=== PATIENT | female | born 1930 | race Caucasian/White ===

== ENCOUNTER → 2016-10-28 | Outpatient (CLI) | payer MEDICARE ==
[~2016-10-28] MED LIST: ACET1TAB PO; ALEN70TA47 PO; AMLO1CAP8 PO; ASPI-504 PO; ATOR10TA56 PO; ATOR20TA54 PO; BISA-65 PO; CYAN1TAB26 PO; HYDR-3754 PO; LEVE500T PO; LVT.025T PO; NF-SOLIF5T PO; OMEP10CA4 PO; OMEP20TA PO; OMG1KC PO; PREG50CA2 PO; PROP60CA PO; PROP80CA4 PO; SULF-14ED PO; SULF-221 PO; smz/tmp
[2016-10-28 10:01] LABS: MEAN CORPUSCULAR HGB CONC 34.7 g/dL (31.0-37.0); MEAN CORPUSCULAR VOLUME 92 FL (80-100); PLATELET COUNT 129 10^3uL (150-450); WHITE BLOOD COUNT 4.59 10^3uL (4.0-11.0)
[2016-10-28 10:02] LABS: MEAN CORPUSCULAR HEMOGLOBIN 31.9 PG (26.0-34.0)
[2016-10-28 10:11] LABS: ALBUMIN 4.1 g/dL (3.4-5.0); ANION GAP 13.5 MEQ/L (3-15); CALCULATED IONIZED CALCIUM 3.9 mg/dL (3.8-4.6); MAGNESIUM* 1.9 mg/dL (1.6-2.3); PHOSPHORUS 4.4 mg/dL (2.4-4.9)
[2016-10-28 10:14] LABS: BAND NEUTROPHILS % 0 % (0-6); EOSINOPHILS % 0 % (0-4); LYMPHOCYTES # 1.7 #; MONOCYTES # 0.4 #; MONOCYTES % 11 % (3-11); RBC MORPH NORMAL (NORMAL); SEGMENTED NEUTROPHILS % 51 % (51-67); TOTAL CELLS COUNTED 100
== END ==
LOC: LAB 09:48
PROVIDERS: ATTEND Internal Medicine Hematology & Oncology
DX: C71.1 Malignant neoplasm of frontal lobe (principal)
CPT/HCPCS: 36415; 80053; 83615; 83735; 84100; 85007; 85027

== ENCOUNTER → 2016-11-18 | Outpatient (CLI) | payer MEDICARE | LOC: RAD 18:25 | PROVIDERS: ATTEND Internal Medicine Hematology & Oncology | DX: C71.1 Malignant neoplasm of frontal lobe (principal) | CPT/HCPCS: 70553; A9579 ==

== ENCOUNTER → 2016-12-16 | Outpatient (CLI) | payer MEDICARE ==
[2016-12-16 14:40] LABS: MEAN CORPUSCULAR VOLUME 92 FL (80-100); MEAN PLATELET VOLUME 10.3 FL (6.0-9.5); PLATELET COUNT 47 10^3uL (150-450); WHITE BLOOD COUNT 3.39 10^3uL (4.0-11.0)
[2016-12-16 14:49] LABS: MEAN CORPUSCULAR HEMOGLOBIN 32.7 PG (26.0-34.0); MEAN CORPUSCULAR HGB CONC 35.6 g/dL (31.0-37.0)
[2016-12-16 15:02] LABS: BAND NEUTROPHILS % 0 % (0-6); LYMPHOCYTES # 0.6 #; MONOCYTES # 0.2 #; MONOCYTES % 6 % (3-11); SEGMENTED NEUTROPHILS % 74 % (51-67)
[2016-12-16 15:03] LABS: EOSINOPHILS % 2 % (0-4); RBC MORPH NORMAL (NORMAL); TOTAL CELLS COUNTED 100
[2016-12-16 15:14] LABS: ANION GAP 12.4 MEQ/L (3-15); CALCULATED IONIZED CALCIUM 4.1 mg/dL (3.8-4.6); MAGNESIUM* 1.8 mg/dL (1.6-2.3); PHOSPHORUS 3.9 mg/dL (2.4-4.9); TOTAL PROTEIN 5.5 g/dL (6.4-8.5)
== END ==
LOC: LAB 14:25
PROVIDERS: ATTEND Internal Medicine Hematology & Oncology
DX: C71.1 Malignant neoplasm of frontal lobe (principal)
CPT/HCPCS: 36415; 80053; 83615; 83735; 84100; 85007; 85027

== ENCOUNTER → 2016-12-17 | Outpatient (CLI) | payer MEDICARE | LOC: RAD 10:24 | PROVIDERS: ATTEND Internal Medicine Hematology & Oncology | DX: M25.561 Pain in right knee (principal) | CPT/HCPCS: 73560 ==

== ENCOUNTER → 2016-12-25 | Outpatient (CLI) | payer MEDICARE | LOC: RAD 13:13 | PROVIDERS: ATTEND Internal Medicine Hematology & Oncology | DX: M79.89 Other specified soft tissue disorders (principal); C71.1 Malignant neoplasm of frontal lobe; I82.492 Acute embolism and thrombosis of other specified deep vein of left lower extremity | CPT/HCPCS: 93970 ==

== ENCOUNTER → 2017-01-13 | Outpatient (CLI) | payer MEDICARE ==
[2017-01-13 09:13] LABS: MEAN CORPUSCULAR HEMOGLOBIN 31.1 PG (26.0-34.0); MEAN CORPUSCULAR HGB CONC 32.7 g/dL (31.0-37.0); MEAN CORPUSCULAR VOLUME 95 FL (80-100); MEAN PLATELET VOLUME 9.2 FL (6.0-9.5); PLATELET COUNT 269 10^3uL (150-450); WHITE BLOOD COUNT 8.97 10^3uL (4.0-11.0)
[2017-01-13 09:16] LABS: BAND NEUTROPHILS % 0 % (0-6); EOSINOPHILS % 1 % (0-4); LYMPHOCYTES # 5.1 #; MONOCYTES # 0.2 #; MONOCYTES % 2 % (3-11); RBC MORPH NORMAL (NORMAL); SEGMENTED NEUTROPHILS % 39 % (51-67); TOTAL CELLS COUNTED 100
[2017-01-13 09:31] LABS: ALBUMIN 3.6 g/dL (3.4-5.0); ANION GAP 15.9 MEQ/L (3-15); CALCULATED IONIZED CALCIUM 3.8 mg/dL (3.8-4.6); MAGNESIUM* 1.7 mg/dL (1.6-2.3); TOTAL PROTEIN 7.2 g/dL (6.4-8.5)
== END ==
LOC: LAB 08:55
PROVIDERS: ATTEND Internal Medicine Hematology & Oncology
DX: C71.1 Malignant neoplasm of frontal lobe (principal)
CPT/HCPCS: 36415; 80053; 82570; 83615; 83735; 84100; 84156; 85007; 85027

== ENCOUNTER → 2017-02-10 | Outpatient (CLI) | payer MEDICARE ==
[2017-02-10 09:49] LABS: MEAN CORPUSCULAR HEMOGLOBIN 30.2 PG (26.0-34.0); MEAN CORPUSCULAR HGB CONC 33.1 g/dL (31.0-37.0); MEAN CORPUSCULAR VOLUME 91 FL (80-100); MEAN PLATELET VOLUME 9.3 FL (6.0-9.5); PLATELET COUNT 174 10^3uL (150-450)
[2017-02-10 09:57] LABS: BAND NEUTROPHILS % 0 % (0-6); EOSINOPHILS % 2 % (0-4); LYMPHOCYTES # 5.3 #; MAGNESIUM* 1.5 mg/dL (1.6-2.3); MONOCYTES # 0.2 #; MONOCYTES % 3 % (3-11); RBC MORPH NORMAL (NORMAL); SEGMENTED NEUTROPHILS % 34 % (51-67); TOTAL CELLS COUNTED 100; TOTAL PROTEIN 7.4 g/dL (6.4-8.5)
== END ==
LOC: LAB 09:31
PROVIDERS: ATTEND Internal Medicine Hematology & Oncology
DX: C71.1 Malignant neoplasm of frontal lobe (principal)
CPT/HCPCS: 36415; 80053; 82570; 83615; 83735; 84100; 84156; 85007; 85027

== ENCOUNTER → 2017-02-13 | Outpatient (CLI) | payer MEDICARE ==
--- NOTE | 2017-02-13 09:19 | Diagnostic Imaging Report ---
PROCEDURE: MR imaging of the brain with and without contrast. TECHNIQUE: Multiplanar, multisequence MR imaging of the brain was performed with and without contrast. INDICATION: Brain tumor. COMPARISON: Multiple MRI brain without and with IV contrast 08/02/2016 through 11/18/2016. FINDINGS: Since the most recent prior exam, the peripheral enhancing mass in the anterior right frontal lobe is smaller measuring approximately 2.9 x 3.2 x 3.6 cm, previously 3.7 x 3.9 x 4.8 cm. There is less avid enhancement about the periphery of this mass. There is also decreased surrounding T2 hyperintensities. These continue to cross the corpus callosum but no longer reach the precentral gyrus of the right frontal lobe. The extensive of involvement of the right insula has decreased. There is only minimal residual T2 hyperintensities in the right amygdala. The mass effect upon the right lateral ventricle has also decreased. The previously seen ring-enhancing mass in the more superior right parasagittal frontal lobe demonstrates decreased enhancement with only a thin incomplete rim of enhancement persisting. Stable postoperative findings right frontal craniotomy. No new remote abnormal signal or enhancement. Persistent mucosal thickening in the maxillary sinuses with increasing mucosal thickening in the right frontal sinus. No air-fluid levels. There remains no hydrocephalus or extra-axial fluid collections. Normal intracranial flow voids. The orbits are unremarkable. Normal bone marrow signal. IMPRESSION: Interval response to therapy with decreasing size and less avid enhancement of the mass centered in the right frontal lobe. Additionally, the surrounding T2 hyperintensities have decreased in their extent, described above. Dictated by: Dictated on workstation # [id number]
== END ==
LOC: RAD 06:45
PROVIDERS: ATTEND Internal Medicine Hematology & Oncology
DX: C71.1 Malignant neoplasm of frontal lobe (principal)
CPT/HCPCS: 70553; A9579

== ENCOUNTER → 2017-03-05 | Outpatient (CLI) | payer MEDICARE ==
[~2017-03-05] MED LIST changes: +LORA10CA PO; +POTA10TA10 PO; +RIVA20TA PO
== END ==
LOC: EMS 20:00
DX: Z53.20 Procedure and treatment not carried out because of patient's decision for unspecified reasons (principal)

== ENCOUNTER 2017-03-06 16:47 | Emergency (ER) | payer MEDICARE ==
[~2017-03-06] VITALS: Ht 157.5 cm; Wt 60.0 kg
[~2017-03-06 16:47] MED LIST changes: -FURO40TA4 PO; -LORA10CA PO; -POTA10TA10 PO; -RIVA20TA PO
[2017-03-06] MEDS ORDERED: SODIUM CHLORIDE FLUSH 3 ML SYR IV ONE (17:30)
[2017-03-06] MEDS ORDERED: SODIUM CHLORIDE FLUSH 10 ML SYR IV PRN (17:30)
[2017-03-06 18:05] VITALS: BP 114/66
[2017-03-06] MEDS ORDERED: RIVA20TA PO (18:23)
[2017-03-06] MEDS ORDERED: LORA10CA PO (18:23)
[2017-03-06] MEDS ORDERED: POTA10TA10 PO (18:23)
== END 2017-03-06 18:30 | disposition short-term general hospital (02) ==
LOC: ED 16:49
DX: I60.8 Other nontraumatic subarachnoid hemorrhage (principal); S06.370A Contusion, laceration, and hemorrhage of cerebellum without loss of consciousness, initial encounter; W08.XXXA Fall from other furniture, initial encounter; Y92.009 Unspecified place in unspecified non-institutional (private) residence as the place of occurrence of the external cause
CPT/HCPCS: 99284; J7030

== ENCOUNTER → 2017-03-06 | Outpatient (CLI) | payer MEDICARE ==
[~2017-03-06] MED LIST changes: +FURO40TA4 PO
== END ==
LOC: EMS 18:20
PROVIDERS: ATTEND Surgery
DX: I60.8 Other nontraumatic subarachnoid hemorrhage (principal)

== ENCOUNTER → 2017-03-06 | Outpatient (CLI) | payer MEDICARE ==
--- NOTE | 2017-03-06 15:08 | Diagnostic Imaging Report ---
PROCEDURE: CT head without contrast. TECHNIQUE: Multiple contiguous axial images were obtained through the brain without the use of intravenous contrast. INDICATION: History of brain tumor. Post fall one night earlier with a large hematoma. CORRELATION STUDY: 07/31/2016. FINDINGS: There is the presence of a large left frontal scalp hematoma. The bony calvarium below this area appears to be intact. There are scattered areas of acute intracranial hemorrhage which includes predominantly scattered areas of subarachnoid blood along the bilateral frontoparietal regions as well as a small amount of intraventricular blood of the right lateral ventricle as well as blood at the level of the cisterna magna. There are post surgical changes of right frontal craniotomy. The distorted appearance with low-attenuation and loss of the normal contour of the right frontal lobe is generally stable. Areas of high density in this area appear unchanged. Prominent intracranial vascular calcifications are again demonstrated. There is complete opacification of the right maxillary sinus appearing to be unchanged. There may be direct extension into the right nasal cavity and partial opacification of multiple right-sided ethmoid air cells. The frontal sinus is also largely opacified with soft tissue density. These findings were present on a prior study but overall have progressed. IMPRESSION: 1. There is a rather sizable left frontal scalp hematoma. There are scattered areas of acute subarachnoid and intraventricular hemorrhage. There is right frontal craniotomy with likely encephalomalacia and edema about the right frontal lobe generally stable. 3. There is chronic opacification of the right maxillary sinus but progressive increased opacification of the right-sided ethmoid air cells, nasal cavity, and frontal sinus. CRITICAL FINDINGS: The findings were telephoned to Dr. Gore prior to this dictation. Dictated by: Dictated on workstation # [id number]
== END ==
LOC: RAD 13:49
PROVIDERS: ATTEND Internal Medicine
DX: R51 Headache (principal); S00.83XA Contusion of other part of head, initial encounter; W19.XXXA Unspecified fall, initial encounter; Z85.841 Personal history of malignant neoplasm of brain
CPT/HCPCS: 70450

== ENCOUNTER 2017-03-09 04:32 | Inpatient (IN) | payer MEDICARE ==
[~2017-03-09] VITALS: Ht 157.5 cm; Wt 58600.0 kg
[~2017-03-09 04:32] MED LIST changes: -FURO40TA4 PO; -MORP20SO SL
[2017-03-09] MEDS ORDERED: LORazepam 2 MG/ML (ATIVAN) 1 ML VIAL ONE (04:39)
[2017-03-09] MEDS ORDERED: LORazepam 2 MG/ML (ATIVAN) 1 ML VIAL IV ONE ×4 (04:40→05:25)
[2017-03-09] MEDS ORDERED: SODIUM CHLORIDE FLUSH 3 ML SYR IV ONE (04:55)
[2017-03-09] MEDS ORDERED: SODIUM CHLORIDE FLUSH 10 ML SYR IV PRN (04:55)
[2017-03-09] MEDS ORDERED: LORazepam 2 MG/ML (ATIVAN) 1 ML VIAL IV PRN ×2 (05:15→10:00)
--- NOTE | 2017-03-09 05:15 | NUR ---
SAFIA FROM [facility] HERE TO INTUBATE PT DR HINTON TRIED X 2 W/O SUCJENNY. SAFIA INTUBATED PT W #7 AT 18 CM AT LIP Addendum: 03/09/17 at 0634 by [id number] EMS SAFIA DID SECURE THE ET TUBE WITH ET TUBE SECURING TAPE/WRAP.
[2017-03-09] MEDS ORDERED: ROCURONIUM 50 MG/5 ML (ZEMURON) VIAL IV ONE (05:20)
--- NOTE | 2017-03-09 05:41 | NUR ---
MULTIPLE STAFF EMS AND RNS CONTINUE TO BE WITH PATIENT DR HINTON SPOKE WITH [facility] JEANETTE DAI, LAURA AND THEY DO NOT WANT PT TRANSFERED IF POSSIBLE AND THAT THEY JUST WANT COMFORT CARE ON PT PT DID SX DNR AND LIVING WILL PAPERS. PT TAKEN TO CT AT THIS TIME
--- NOTE | 2017-03-09 06:28 | Diagnostic Imaging Report ---
PROCEDURE: CT head without contrast. TECHNIQUE: Multiple contiguous axial images were obtained through the brain without the use of intravenous contrast. INDICATION: Seizure. COMPARISON: 03/07/2017. FINDINGS: Multiple scattered foci of acute subarachnoid hemorrhage are not significantly changed. More rounded hyperdense focus in the mesial right temporal lobe likely is an intraparenchymal focus of hemorrhage which is also unchanged. There is also probable intraparenchymal focus of hemorrhage in the posterior and medial aspect of the left cerebellar hemisphere, also unchanged. Trace intraventricular hemorrhage within the dependent aspect of the left lateral ventricle. No new foci of intracranial hemorrhage. Basilar cisterns remain patent. No obstructive hydrocephalus. Large area of decreased attenuation in the right frontal lobe is similar and likely due to postoperative change. Stable asymmetric low-attenuation of the right frontal subdural space may relate to chronic hematoma/hygroma. Stable large left frontal subcutaneous hematoma. No new skull fracture. Surgical changes from right frontal craniotomy. Chronic dense complete opacification of the right maxillary sinus is similar. Polypoidal mucosal thickening of the left maxillary sinus is unchanged. Near-complete opacification of the right frontal sinus and anterior ethmoid air cells. Mastoid air cells are clear. IMPRESSION: 1. Small volume of multifocal subarachnoid hemorrhage, intraventricular hemorrhage and scattered intraparenchymal hemorrhage are all not significantly changed since CT head of 03/07/2017. No new intracranial hemorrhage or obstructive hydrocephalus. 2. Stable right frontal encephalomalacia with overlying craniotomy. Dictated by: Dictated on workstation # [id number]
[2017-03-09 06:30] LABS: BASOPHILS % (AUTO) 0 % (0-2); EOSINOPHILS # (AUTO) 0.3 10^3uL; EOSINOPHILS % (AUTO) 2 % (0-4); MEAN CORPUSCULAR HEMOGLOBIN 29.2 PG (26.0-34.0); MEAN CORPUSCULAR HGB CONC 33.6 g/dL (31.0-37.0); MEAN CORPUSCULAR VOLUME 87 FL (80-100); MEAN PLATELET VOLUME 10.1 FL (6.0-9.5); MONOCYTES # (AUTO) 0.8 X10^3; MONOCYTES % (AUTO) 7 % (3-11); NEUTROPHILS # (AUTO) 6.1 X10^3; NEUTROPHILS % (AUTO) 50 % (51-67); PLATELET COUNT 190 10^3uL (150-450); WHITE BLOOD COUNT 12.28 10^3uL (4.0-11.0)
[2017-03-09 06:32] LABS: ABG OXYGEN SATURATION 100 % (95-98); ABG PCO2 22 mmHg (35-45); ABG PH 7.63 (7.35-7.45); ABG PO2 228 mmHg (80-105)
[2017-03-09 06:34] LABS: ALBUMIN 3.7 g/dL (3.4-5.0); ANION GAP 13.6 MEQ/L (3-15); CALCULATED IONIZED CALCIUM 4.1 mg/dL (3.8-4.6)
--- NOTE | 2017-03-09 06:35 | NUR ---
MCKAYLA CALLED WITH ABG RESULTS RN GAVE THEM TO DR HINTON
--- NOTE | 2017-03-09 06:39 | NUR ---
RN ALLAN HAS BEEN BAGGING PT WHILE RT DID ABGS. JOYCE FROM RT IN ROOM NOW AND HE HAS TAKEN OVER BAGGING. ALSO CORRECTION THE ET TUBE SIZE 7 IS AT 26 CM AT LIP PER JOYCE
--- NOTE | 2017-03-09 06:44 | NUR ---
SAFIA FROM EMS IS HERE AND HE THINKS IT WAS 18CM AT LIP HE IS GOING TO GO IN AND CHECK TO CONFIRM.
--- NOTE | 2017-03-09 06:47 | NUR ---
Mario Segovia RT noted that tube was 26 at the lip, and earlier noted it was 18 at the lip, Mario MCFADDEN pulled the tube back to 23 at the lip and has equal and bilateral breath sounds Dr. Loco was notified.
--- NOTE | 2017-03-09 07:00 | NUR ---
MEDS WERE PULLED BY Mendoza HENDERSON RN AND ADMINISTERED BY HER. SCANNED BY Tess MENDIETA RN BOTH NURSES IN ROOM.
--- NOTE | 2017-03-09 07:01 | NUR ---
Strips and Vital signs are printed out up to 0700 Report was given to Yenny Valentine RN for continued care of pt.
[2017-03-09] MEDS ORDERED: LEVETIRACETAM IV 1,000 MG in SODIUM CHLORIDE 100 ML IV ONE (07:30)
--- NOTE | 2017-03-09 08:23 | Diagnostic Imaging Report ---
INDICATION: Intubation. Comparison: 07/31/16. Findings: ET tube has tip approximately 2 cm above the marci. Visible lungs are clear with the exception of stable scattered linear atelectasis in the lung bases. No pleural effusion or pneumothorax. Stable mild cardiomegaly and atherosclerotic aorta. Cholecystectomy. IMPRESSION: 1. ET tube has tip approximately 2 cm above the marci. Consider 1-2 cm of retraction. Dictated by: Dictated on workstation # [id number]
[2017-03-09] MEDS ORDERED: FURO40TA4 PO (08:48)
--- NOTE | 2017-03-09 08:55 | NUR ---
The patient arrives to room 346 with bagmask via Mario RT. Monitors placed. Assessment is ongoing.
--- NOTE | 2017-03-09 09:15 | NUR ---
Dr. Pandey in to assess the patient at this time and visit with family
--- NOTE | 2017-03-09 09:22 | History and Physical (E) ---
History & Physical PCP: Feliec Francis MD CC: Seizure, history of glioblastoma HPI Dejah Joseph is a 86 year old female admitted from ED 03/09 where she presented because of seizure. She has history of glioblastoma and was just in ED 03/06 after a fall from bar stool the day prior which led to hematoma over the left eye which prompted CT showing subdural hematoma. She was sent to [facility] and was just discharged from their 03/07 (yesterday.) She had seizure this AM at 0430. EMS gave her diazepam x 2 because of recurrent seizure. On arrival to ED she additional seizure so got lorazepam. Because of sedation, her respiratory rate slowed and she was intubated in ED. Transfer back to [facility] (where she was just discharged yesterday) was recommended since her neurological situation is complex and this would better meet the standard of care, but family asked that instead be she be allowed to stay close to home while arrangements can be made for transition to hospice. Because she was still intubated, she was admitted to ICU for further management. On arrival to unit, RT was still bagging through the ET tube but she was no longer paralyzed and she was actually breathing on her own so the ET tube was pulled. She was placed on NRB mask. Gurgling was noted. She did not gag much to Yankauer suction. BP was 135/66, HR 79 with SR and PVCs on tele. She was not responsive. Exam as noted below. GCS 6 (). Family is present. Two daughters provide history. Patient went home from [place] 03/08 with her daughter Corry. Patient had been living with her. Corry says her first indication of a problem when she was awake this early AM because of tending to her dog. She heard her mother in another room making unusual noises and when she checked on her, she was concerned and thus called EMS. This was a change from the time she had been discharged from [place] when she had been talking but was admittedly more tired. But from that discharge she went home by private car. Daughter Corry says the plan at [facility] was just to observe the hematoma. No surgery had been planned. Because the CT scan was stable, they were told they could take her home. Corry says they would have gone home from [facility] sooner but she had gotten IV pain medication that had sedated her. With this presentation. 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 craniotomy?) ALLERGIES: Please see list at end of report. HOME MEDICATIONS: Please see list at end of report. FH Non-contributory at this time. SH Throughout this illness, has been living with her daughter in [place]. Has a large and supportive family living nearby. ROS Unable to obtain from patient. OBJECTIVE Vital Signs Date Time Temp Pulse Resp B/P Pulse Ox O2 Delivery O2 Flow Rate FiO2 03/09/17 04:50 100 ET Tube 15 03/09/17 04:45 99.0 75 29 132/74 GEN: Not responsive. GCS 4 () HEENT: Eyes closed, swollen bilaterally. Ecchymotic, L > R. Pupils equal, 3 mm, sluggishly reactive. Clear sclerae. Dry oral mucosa. Rhonchi in upper airway. Large frontal left hematoma. Craniotomy scar. CV: RRR. SR on tele with PVCs. LUNGS: Coarse rhonchi in upper airway. ABD: Soft, sunken, hypoactive bowel sounds. EXTR: No edema. Normal peripheral pulses. INTEG: Ecchymoses, hematoma as described. Age related changes. NEURO: GCS 4 (). Withdraws feet to palpation. Not responsive. Weight: 58.6 kg Laboratory Results-14 Days 03/09/17 05:20: Alanine Aminotransferase (ALT/SGPT) 11L, Albumin 3.7, Albumin/Globulin Ratio 1.121, Alkaline Phosphatase 87, Anion Gap 13.6, Aspartate Amino Transf (AST/SGOT ) 33, BUN/Creatinine Ratio 23H, Basophils # (Auto) 0.0, Basophils (%) (Auto) 0, Blood Urea Nitrogen 15, Calcium Level 9.3, Calcium/Ionized Calcium Ratio 4.1, Calculated Osmolality 280, Carbon Dioxide Level 28, Chloride Level 107, Creatinine 0.66, Eosinophils # (Auto) 0.3, Eosinophils (%) (Auto) 2, Estimat Glomerular Filtration Rate 102.3, Estimated GFR (Non- 84.5, Glucose Level 123H, Hematocrit 37.50, Hemoglobin 12.6, Lymphocytes # (Auto) 5.0 , Lymphocytes (%) (Auto) 40, Mean Corpuscular Hemoglobin 29.2, Mean Corpuscular Hemoglobin Concent 33.6, Mean Corpuscular Volume 87, Mean Platelet Volume 10.1H , Monocytes # (Auto) 0.8, Monocytes (%) (Auto) 7, Neutrophils # (Auto) 6.1, Neutrophils (%) (Auto) 50L, Platelet Count 190, Potassium Level 4.1, Red Blood Count 4.32, Red Cell Distribution Width 13.0, Sodium Level 144, Total Bilirubin 1.3H, Total Protein 7.0, White Blood Count 12.28H 03/09/17 06:20: Tobin Test pos, Arterial Blood Base Excess 2.0, Arterial Blood HCO3 23.0, Arterial Blood Oxygen Saturation 100H, Arterial Blood Partial Pressure CO2 22L, Arterial Blood Partial Pressure O2 228H, Arterial Blood Total CO2 24.0, Arterial Blood pH 7.63*H, Blood Gas Puncture Site rra, FiO2 % 100.0 IMAGING 03/09/17 CT HEAD WO PROCEDURE: CT head without contrast. TECHNIQUE: Multiple contiguous axial images were obtained through the brain without the use of intravenous contrast. INDICATION: Seizure. COMPARISON: 03/07/2017. FINDINGS: Multiple scattered foci of acute subarachnoid hemorrhage are not significantly changed. More rounded hyperdense focus in the mesial right temporal lobe likely is an intraparenchymal focus of hemorrhage which is also unchanged. There is also probable intraparenchymal focus of hemorrhage in the posterior and medial aspect of the left cerebellar hemisphere, also unchanged. Trace intraventricular hemorrhage within the dependent aspect of the left lateral ventricle. No new foci of intracranial hemorrhage. Basilar cisterns remain patent. No obstructive hydrocephalus. Large area of decreased attenuation in the right frontal lobe is similar and likely due to postoperative change. Stable asymmetric low-attenuation of the right frontal subdural space may relate to chronic hematoma/hygroma. Stable large left frontal subcutaneous hematoma. No new skull fracture. Surgical changes from right frontal craniotomy. Chronic dense complete opacification of the right maxillary sinus is similar. Polypoidal mucosal thickening of the left maxillary sinus is unchanged. Near-complete opacification of the right frontal sinus and anterior ethmoid air cells. Mastoid air cells are clear. IMPRESSION: 1. Small volume of multifocal subarachnoid hemorrhage, intraventricular hemorrhage and scattered intraparenchymal hemorrhage are all not significantly changed since CT head of 03/07/2017. No new intracranial hemorrhage or obstructive hydrocephalus. 2. Stable right frontal encephalomalacia with overlying craniotomy. 03/09/17 CXR: PENDING 03/07/2017 CT head without contrast. TECHNIQUE: Multiple contiguous axial images were obtained through the brain without the use of intravenous contrast. INDICATION: Intracranial hemorrhage. COMPARISON: 03/06/2017. FINDINGS: Again identified is small amount of subarachnoid hemorrhage along the superior margins of the sylvian fissures, bilaterally. Focus of hemorrhage is also seen adjacent to the posterior medial right temporal lobe, possibly within the right lateral ventricle. Small focus of hemorrhage is also seen within the posterior fossa posteriorly, midline. These areas of hemorrhage are essentially stable. Trace amount of intraventricular hemorrhage is also seen within the posterior horn of the left lateral ventricle. This may be new compared to prior exam, although again is minimal. There is no new mass effect or midline shift. Also again identified is moderate to large area of decreased attenuation involving the anterior margins of the right frontal lobe. Overlying craniotomy defect is also noted. Bone flap appears to be in satisfactory position. No new areas of loss of escalante-white matter junction differentiation are seen to suggest acute infarct. There is scattered and confluent areas of decreased attenuation within the periventricular and subcortical deep white matter consistent with chronic small vessel ischemic changes. Paranasal sinuses show complete opacification of the right maxillary sinus and at anterior ethmoid air cells. There is also mucosal retention cyst versus polyp in the left maxillary sinus. This is stable compared to prior exam. IMPRESSION: 1. Trace acute hemorrhage within the left lateral ventricle, which appears to be new compared to prior exam. Otherwise, scattered areas of intracranial hemorrhage are overall stable. 2. Stable moderate to large area of decreased attenuation involving the right frontal lobe. 3. No evidence of new acute infarct. 03/06/17 PROCEDURE: US LE venous duplex, bilateral. TECHNIQUE: Multiple real- time grayscale images were obtained over the lower extremities in various projections, bilaterally. Additional duplex Doppler and color Doppler images were also obtained. INDICATION: Previous deep venous thrombosis. FINDINGS: There is wall thickening involving the superficial femoral veins bilaterally, however, there is normal venous flow throughout the deep venous systems of both lower extremities without evidence of thrombosis. There is normal compressibility and response to augmentation. IMPRESSION: Probable scarring related to previous deep venous thrombosis of the superficial femoral veins of both legs. There is no ultrasound evidence of acute deep venous thrombosis. 03/06/17 XRAY SHOULDER COMPLETE LEFT: Indication: Left shoulder injury with pain. Fall. Discussion: Two views of the left shoulder were obtained, no comparison. Exam is somewhat limited due to positioning and patient body habitus. Abnormal appearance of the humeral neck region could be developmental though an underlying nondisplaced fracture cannot be excluded. There is no definite cortical defect identified within either of these two views. If there is clinical concern, noncontrast CT of the left shoulder could be obtained for further evaluation. No dislocation. Mild degenerative changes are noted within the acromioclavicular and glenohumeral joints. Soft tissues are unremarkable. Impression: 1. Abnormal angulation between the humeral head and shaft could potentially be developmental though a nondisplaced fracture should be excluded. Noncontrast CT of the left shoulder could be performed as clinically indicated. 03/06/17 CT HEAD WO PROCEDURE: CT head without contrast. TECHNIQUE: Multiple contiguous axial images were obtained through the brain without the use of intravenous contrast. INDICATION: History of brain tumor. Post fall one night earlier with a large hematoma. CORRELATION STUDY: 07/31/2016. FINDINGS: There is the presence of a large left frontal scalp hematoma. The bony calvarium below this area appears to be intact. There are scattered areas of acute intracranial hemorrhage which includes predominantly scattered areas of subarachnoid blood along the bilateral frontoparietal regions as well as a small amount of intraventricular blood of the right lateral ventricle as well as blood at the level of the cisterna magna. There are post surgical changes of right frontal craniotomy. The distorted appearance with low-attenuation and loss of the normal contour of the right frontal lobe is generally stable. Areas of high density in this area appear unchanged. Prominent intracranial vascular calcifications are again demonstrated. There is complete opacification of the right maxillary sinus appearing to be unchanged. There may be direct extension into the right nasal cavity and partial opacification of multiple right-sided ethmoid air cells. The frontal sinus is also largely opacified with soft tissue density. These findings were present on a prior study but overall have progressed. IMPRESSION: 1. There is a rather sizable left frontal scalp hematoma. There are scattered areas of acute subarachnoid and intraventricular hemorrhage. There is right frontal craniotomy with likely encephalomalacia and edema about the right frontal lobe generally stable. 3. There is chronic opacification of the right maxillary sinus but progressive increased opacification of the right- sided ethmoid air cells, nasal cavity, and frontal sinus. ASSESSMENT Dejah Joseph is a 86 year old female admitted from ED 03/09 where she presented with status epilepticus. She has complicated neurological history including glioblastoma multiforme s/p craniotomy, chemotherapy. She had a fall at home 03/06 sustaining a left frontal contusion, scalp hematoma, and subdural hematomas. She had been transferred to [facility], was observed there, but was discharged 03/08 without further intervention. But she started seizing at home in early AM 03/09 and was thus brought to this facility by EMS. She developed respiratory failure because of sedation from anti-epileptic drugs and was intubated in ED but was never connected to the ventilator. Family request that she be admitted here for comfort care with the expectation that she will pass away soon. She was extubated and comfort care was initiated. PLAN * Acute Respiratory Failure: Attributed to sedative effects of anti-epileptic drugs. On arrival to ICU, paralytic had worn off and she was breathing on her own through the ET tube. She was thus extubated. Oxygen per NRP was applied for comfort. Suction PRN. Morphine for air hunger. * Status Epilepticus: Got diazepam x 2 in the field, lorazepam in the ED. Levetiracetam 1000 mg IV was also given in ED. Plan lorazepam IV if she has recurrent seizure. Will be getting lorazepam PO per comfort care protocol. * Glioblastoma multiforme: Comfort care. Notify oncology and neurosurgery of decline in status. * Subdural Hematoma: Present prior to admit, from fall at home 03/06. Comfort care. * Pain: MOONEY and left shoulder pain prior to admit from recent fall at home. Left shoulder fracture and left frontal contusion/hematoma noted. Morphine per comfort care protocol. * Left frontal hematoma, head contusion, concussion: Observe. Comfort care. * Left shoulder fracture: Observe. Comfort care. * Nausea: Ondansetron/promethazine per comfort care protocol. * F/E/N: NPO, SL IV. * Prophylaxis: Deferred * Code Status: DNR * Dispo: Inpatient. Comfort care. If she endures > 48 hours, consider hospice consult. CHRONIC ISSUES Home medications stopped on admit: * Hypothyroidism * HLD * HTN * Seasonal allergies Allergies/Home Medications Allergies: Coded Allergies: fluconazole (Verified Allergy, Mild, Nausea/Vomiting, 03/09/17) piroxicam (Verified Allergy, Mild, Nausea/Vomiting, 03/09/17) Reported Home Medications Scheduled Aspirin (Baby Aspirin) 81 MG PO DAILY (Reported) Atorvastatin Calcium (Atorvastatin Calcium) 20 MG PO DAILY (Reported) Furosemide (Furosemide) 40 MG PO DAILY (Reported) Levetiracetam (Keppra) 500 MG PO BID Levothyroxine Sodium (Levothyroxine Sodium) 25 MCG PO DAILY@0700 Loratadine (Claritin) 10 MG PO DAILY (Reported) Potassium Chloride (Potassium Chloride) 10 MEQ PO BID (Reported) Propranolol HCl (Propranolol HCl) 80 MG PO DAILY (Reported) Rivaroxaban (Xarelto) 20 MG PO DAILY (Reported) Discontinued Medications Sulfamethoxazole/Trimethoprim (Sulfamethoxazole/Trimethoprim DS 800mg/160mg) 1 EACH PO BID on // each wk Discontinued Reason: Update list Copies to: End of Report . SEAN DAVIDSON MD March 09, 2017 07:43
[2017-03-09 09:25] VITALS: BP 144/87
--- NOTE | 2017-03-09 09:40 | NUR ---
The patient is to be on comfort care per Dr. Pandey. Orders are processing.
--- NOTE | 2017-03-09 09:56 | NUR ---
Assumed responsibility of ventilating by BMV at 100% FIO2 at 0640, continued to bag Pt, with some periods of spontaneous breathing and transferred to ICU via gurney at about 0840. Pt extubated per VORB from Dr. Pandey at [address] on NRB at 15 l/min. RR 33, HR 71, SPO2 83%.
[2017-03-09] MEDS ORDERED: SCOPOLAMINE 1.5 MG (TRANSDERM-SCOP) PATCH TD SCH (10:00)
[2017-03-09] MEDS ORDERED: LORazepam ORAL CONCENTRATE 2 MG/ML (ATIVAN) SYR PO/SL PRN (10:00)
[2017-03-09] MEDS ORDERED: morphine ORAL CONC 20 MG/ML (ROXANOL) 1 ML SYRINGE SL PRN (10:00)
[2017-03-09] MEDS ORDERED: PROMETHAZINE HCL INJ 25 MG in SODIUM CHLORIDE 25 ML IV PRN (10:00)
[2017-03-09] MEDS ORDERED: ONDANSETRON 2 MG/ML (Z0FRAN) 2 ML VIAL IV PRN (10:00)
[2017-03-09] MEDS ORDERED: ALBUTEROL 0.083% NEB SOLUTION 2.5 MG/3 ML VIAL INH PRN (10:00)
[2017-03-09] MEDS ORDERED: PROCHLORPERAZINE 25 MG (COMPAZINE) SUPP PR PRN (10:00)
[2017-03-09] MEDS ORDERED: BISACODYL 10 MG SUPP (DULCOLAX) PR PRN (10:00)
[2017-03-09] MEDS ORDERED: ARTIFICIAL TEARS OPHTHALMIC OINTMENT 3.5 GM TUBE OU PRN ×2 (10:00→10:30)
[2017-03-09] MEDS ORDERED: ACETAMINOPHEN 650 MG SUPP (TYLENOL) PR PRN (10:00)
--- NOTE | 2017-03-09 10:48 | NUR ---
Med Rec completed via Ext Med Hx.
--- NOTE | 2017-03-09 14:30 | NUR ---
The patient transfers to room 307 via cart. Comfort measures to resume. Dejah is on 3LNC and is being turned q2HRs. Family is at the bedside.
--- NOTE | 2017-03-09 18:57 | NUR ---
report given to Joceline HOLM and care relinquished.
--- NOTE | 2017-03-10 04:58 | NUR ---
Pt is on comfort care, family has been at bedside during this shift. Pt has been unresponsive this shift, has not needed any medications for comfort. Pt has been turned and changed q 2hrs and oral care provided during this time. Family denies needs at this time. Will continue to monitor.
--- NOTE | 2017-03-10 10:47 | Progress Note-A/P (E) ---
Progress Note Subjective Subjective HPI unchanged. patient remains unresponsive to verbal stimuli and noxious stimuli as well Objective VS Vital Signs Date Time Temp Pulse Resp B/P Pulse Ox O2 Delivery O2 Flow Rate FiO2 03/09/17 11:33 74 22 91 Ambu-Bag 15 03/09/17 09:25 96.9 03/09/17 04:45 132/74 I&O PROBLEMS; * Acute Respiratory Failure: Attributed to sedative effects of anti-epileptic drugs. On arrival to ICU, paralytic had worn off and she was breathing on her own through the ET tube. She was thus extubated. Oxygen per NRP was applied for comfort. Suction PRN. Morphine for air hunger. * Status Epilepticus: Got diazepam x 2 in the field, lorazepam in the ED. Levetiracetam 1000 mg IV was also given in ED. Plan lorazepam IV if she has recurrent seizure. Will be getting lorazepam PO per comfort care protocol. * Glioblastoma multiforme: Comfort care. Notify oncology and neurosurgery of decline in status. * Subdural Hematoma: Present prior to admit, from fall at home 03/06. Comfort care. * Pain: MOONEY and left shoulder pain prior to admit from recent fall at home. Left shoulder fracture and left frontal contusion/hematoma noted. Morphine per comfort care protocol. * Left frontal hematoma, head contusion, concussion: Observe. Comfort care. * Left shoulder fracture: Observe. Comfort care. * Nausea: Ondansetron/promethazine per comfort care protocol. * F/E/N: NPO, SL IV. * Prophylaxis: Deferred * Code Status: DNR * Dispo: Inpatient. Comfort care. If she endures > 48 hours, consider hospice consult. Current Medications Current Medications Sodium Chloride 10 ml PRN PRN IV Last administered on 03/09/17 05:00; Admin Dose 10 ML; Start 03/09/17 at 04:55 Lorazepam 3 mg PRN PRN IV; Start 03/09/17 at 05:15 Albuterol Sulfate 2.5 mg Q4H PRN INH; Start 03/09/17 at 10:00 Morphine Sulfate 5-20 mg Q1H PRN SL; Start 03/09/17 at 10:00 Scopolamine 1.5 mg Q72H TD Last administered on 03/09/17 11:29; Admin Dose 1.5 MG; Start 03/09/17 at 10:00 Lorazepam 0.5-2 mg Q2H PRN PO/SL; Start 03/09/17 at 10:00 Lorazepam 2 mg Q6H PRN IV; Start 03/09/17 at 10:00 Ondansetron HCl 8 mg 8 mg Q8H PRN IV; Start 03/09/17 at 10:00 Promethazine HCl/ Sodium Chloride 26 ml @ 50 mls/hr Q6H PRN IV; Start 03/09/17 at 10:00 Prochlorperazine 25 mg Q12H PRN FL; Start 03/09/17 at 10:00 Bisacodyl 10 mg DAILY PRN FL; Start 03/09/17 at 10:00 Acetaminophen 650 mg Q4H PRN FL; Start 03/09/17 at 10:00 Artificial Tears APPLY RIBBON PRN PRN OU; Start 03/09/17 at 10:30 Miscellaneous REMOVE Scapolomine Q72H TOP; Start 03/12/17 at 09:59 General not awake, spontaneous breathing only at this time. HEENT pupils constricted bilateral and not responsive to light. CV RRR, S1 S2 audible Lungs Clear No rales, rhonchi or wheezes Abdomen Soft non distended, no tenderness to palpation, no masses Extremities No edema Integumentary No unusual findings Neuro No focal motor neuro deficits Labs, Most Recent- Vital Signs Date Time Temp Pulse Resp B/P Pulse Ox O2 Delivery O2 Flow Rate FiO2 03/09/17 11:33 74 22 91 Ambu-Bag 15 03/09/17 09:25 96.9 03/09/17 04:45 132/74 I & O 03/09/17 03/10/17 Cumulative From/Thru 19:00 07:00 03/09/17 04:45 - 03/09/17 18:24 Intake Total 1100 ml 1100 ml Output Total 180 ml 180 ml Balance 920 ml 920 ml Lab-Past 14 Days, 35 Results 03/09/17 05:20: Alanine Aminotransferase (ALT/SGPT) 11L, Albumin 3.7, Albumin/Globulin Ratio 1.121, Alkaline Phosphatase 87, Anion Gap 13.6, Aspartate Amino Transf (AST/SGOT ) 33, BUN/Creatinine Ratio 23H, Basophils # (Auto) 0.0, Basophils (%) (Auto) 0, Blood Urea Nitrogen 15, Calcium Level 9.3, Calcium/Ionized Calcium Ratio 4.1, Calculated Osmolality 280, Carbon Dioxide Level 28, Chloride Level 107, Creatinine 0.66, Eosinophils # (Auto) 0.3, Eosinophils (%) (Auto) 2, Estimat Glomerular Filtration Rate 102.3, Estimated GFR (Non- 84.5, Glucose Level 123H, Hematocrit 37.50, Hemoglobin 12.6, Lymphocytes # (Auto) 5.0 , Lymphocytes (%) (Auto) 40, Mean Corpuscular Hemoglobin 29.2, Mean Corpuscular Hemoglobin Concent 33.6, Mean Corpuscular Volume 87, Mean Platelet Volume 10.1H , Monocytes # (Auto) 0.8, Monocytes (%) (Auto) 7, Neutrophils # (Auto) 6.1, Neutrophils (%) (Auto) 50L, Platelet Count 190, Potassium Level 4.1, Red Blood Count 4.32, Red Cell Distribution Width 13.0, Sodium Level 144, Total Bilirubin 1.3H, Total Protein 7.0, White Blood Count 12.28H 03/09/17 06:20: Tobin Test pos, Arterial Blood Base Excess 2.0, Arterial Blood HCO3 23.0, Arterial Blood Oxygen Saturation 100H, Arterial Blood Partial Pressure CO2 22L, Arterial Blood Partial Pressure O2 228H, Arterial Blood Total CO2 24.0, Arterial Blood pH 7.63*H, Blood Gas Puncture Site rra, FiO2 % 100.0 24 Hr Result Diagram skin bruising facial and orbital and left frontal scalp. Micro Results pending Impressions PLAN * Acute Respiratory Failure: Attributed to sedative effects of anti-epileptic drugs. On arrival to ICU, paralytic had worn off and she was breathing on her own through the ET tube. She was thus extubated. Oxygen per NRP was applied for comfort. Suction PRN. Morphine for air hunger. * Status Epilepticus: Got diazepam x 2 in the field, lorazepam in the ED. Levetiracetam 1000 mg IV was also given in ED. Plan lorazepam IV if she has recurrent seizure. Will be getting lorazepam PO per comfort care protocol. * Glioblastoma multiforme: Comfort care. Notify oncology and neurosurgery of decline in status. * Subdural Hematoma: Present prior to admit, from fall at home 03/06. Comfort care. * Pain: MOONEY and left shoulder pain prior to admit from recent fall at home. Left shoulder fracture and left frontal contusion/hematoma noted. Morphine per comfort care protocol. * Left frontal hematoma, head contusion, concussion: Observe. Comfort care. * Left shoulder fracture: Observe. Comfort care. * Nausea: Ondansetron/promethazine per comfort care protocol. * F/E/N: NPO, SL IV. * Prophylaxis: Deferred * Code Status: DNR * Dispo: Inpatient. Comfort care. If she endures > 48 hours, consider hospice consult. Assessment terminal support care and perhaps home hospice if qualifies. Plan comfort care. Additional Problems skin is try and malnutrition mixed type. HAFSA BHATTI DO March 10, 2017 10:46
[2017-03-10 15:59] VITALS: BP 124/84
--- NOTE | 2017-03-10 18:59 | NUR ---
Report given to Negra HOLM and care relinquished
--- NOTE | 2017-03-10 20:30 | NUR ---
Pt. resting quietly on right side; respirations are currently 12 per minute; appears to be in no distress. Family reports pt. did cough once on her own; no difficulties. Family requests pt. not be turned at this time as she is resting so well and in no apparent distress. Family encouraged to call for any needs or if changes noted with pt.
--- NOTE | 2017-03-11 00:20 | NUR ---
Pt. resting quietly; resp are currently 16 per minute; all extremities warm; O2 at 3L via NC; felix to gravity. Pt. slightly repositioned; pillows placed for comfort; pt. remains unresponsive. Pt. likes blanket to be around head/neck; per family. Female family member at bedside asleep in the recliner.
--- NOTE | 2017-03-11 06:45 | NUR ---
Pt. has been turned and checked for incontinence regularly throughout the shift; felix output of 60 cc's dark, odorous urine. O2 at 3L via NC/humidified; respirations currently 22 per minute. All extremities warm; pillows placed for comfort; blanket wrapped around pt.'s head/neck per family request. Plan of care discussed with family; much reassurance given. Addendum: 03/11/17 at 0732 by Negra Guillory RN Oral care attempted several times; pt. does not like that activity. Pt. remains unresponsive verbally with little to no reaction physically.
--- NOTE | 2017-03-11 08:04 | NUR ---
NUTRITION ASSESSMENT Level 1 Patient: Dejah Joseph Age/Sex: 86/F Date Screened: 03-11-17 Weight: 128.9#/58.6 kg Height: 62 inches Primary Diagnosis: acute respiratory failure, seizure, comfort care Diet Order: NPO Relevant labs: N/A Food allergies: N Nutrition Assessment Criteria Age over 80: 4 points Body Mass Index (BMI) under 19: N Admission Screening Indicates Risk? 6 points Moderate/High Risk Diagnosis: 3 points TPN or PPN: N NPO or clear liquid diet: Yes Serum Glucose <70 or >180: N/A Hgb A1c >6.7: N/A Total: 13 points Risk Screen: __ Patient at low nutritional risk based on available data; reevaluate in 5-7 days __ Patient at moderate nutritional risk based on available data; reevaluate in 3-5 days __ Patient at high nutritional risk; complete Nutrition Assessment within 48 hours of admission. Comments: Pt. is unresponsive and family has elected comfort care, with the assumption that she will be going on Hospice. Will sign off on nutrition services at this time.
[2017-03-11 08:24] VITALS: BP 111/72
--- NOTE | 2017-03-11 10:15 | Progress Note (E) ---
Progress Note S: Not responsive this am. Daughter in room. No new changes over night O: I & O Cumulative 03/10/17 03/11/17 Cumulative From/Thru 19:00 07:00 03/09/17 04:45 - 03/11/17 06:32 Intake Total 30 ml 1130 ml Output Total 135 ml 315 ml Balance -105 ml 815 ml Vitals: Vital Signs Date Time Temp Pulse Resp B/P Pulse Ox O2 Delivery O2 Flow Rate FiO2 03/11/17 08:24 98.9 103 23 111/72 93 Nasal cannula 03/09/17 11:33 15 GEN: Not responsive. HEENT: Eyes closed, swollen bilaterally. Ecchymotic Large frontal left hematoma. Craniotomy scar. CV: RRR. LUNGS: Coarse rhonchi in upper airway. ABD: Soft, sunken, hypoactive bowel sounds. EXTR: No edema. Normal peripheral pulses. INTEG: Ecchymoses, hematoma as described. Age related changes. NEURO: GCS 4 (). Withdraws feet to palpation. Not responsive. Weight: 58.6 kg Laboratory Results-14 Days 03/09/17 05:20: Alanine Aminotransferase (ALT/SGPT) 11L, Albumin 3.7, Albumin/Globulin Ratio 1.121, Alkaline Phosphatase 87, Anion Gap 13.6, Aspartate Amino Transf (AST/SGOT ) 33, BUN/Creatinine Ratio 23H, Basophils # (Auto) 0.0, Basophils (%) (Auto) 0, Blood Urea Nitrogen 15, Calcium Level 9.3, Calcium/Ionized Calcium Ratio 4.1, Calculated Osmolality 280, Carbon Dioxide Level 28, Chloride Level 107, Creatinine 0.66, Eosinophils # (Auto) 0.3, Eosinophils (%) (Auto) 2, Estimat Glomerular Filtration Rate 102.3, Estimated GFR (Non- 84.5, Glucose Level 123H, Hematocrit 37.50, Hemoglobin 12.6, Lymphocytes # (Auto) 5.0 , Lymphocytes (%) (Auto) 40, Mean Corpuscular Hemoglobin 29.2, Mean Corpuscular Hemoglobin Concent 33.6, Mean Corpuscular Volume 87, Mean Platelet Volume 10.1H , Monocytes # (Auto) 0.8, Monocytes (%) (Auto) 7, Neutrophils # (Auto) 6.1, Neutrophils (%) (Auto) 50L, Platelet Count 190, Potassium Level 4.1, Red Blood Count 4.32, Red Cell Distribution Width 13.0, Sodium Level 144, Total Bilirubin 1.3H, Total Protein 7.0, White Blood Count 12.28H 03/09/17 06:20: Tobin Test pos, Arterial Blood Base Excess 2.0, Arterial Blood HCO3 23.0, Arterial Blood Oxygen Saturation 100H, Arterial Blood Partial Pressure CO2 22L, Arterial Blood Partial Pressure O2 228H, Arterial Blood Total CO2 24.0, Arterial Blood pH 7.63*H, Blood Gas Puncture Site rra, FiO2 % 100.0 IMAGING 03/09/17 CT HEAD WO PROCEDURE: CT head without contrast. TECHNIQUE: Multiple contiguous axial images were obtained through the brain without the use of intravenous contrast. INDICATION: Seizure. COMPARISON: 03/07/2017. FINDINGS: Multiple scattered foci of acute subarachnoid hemorrhage are not significantly changed. More rounded hyperdense focus in the mesial right temporal lobe likely is an intraparenchymal focus of hemorrhage which is also unchanged. There is also probable intraparenchymal focus of hemorrhage in the posterior and medial aspect of the left cerebellar hemisphere, also unchanged. Trace intraventricular hemorrhage within the dependent aspect of the left lateral ventricle. No new foci of intracranial hemorrhage. Basilar cisterns remain patent. No obstructive hydrocephalus. Large area of decreased attenuation in the right frontal lobe is similar and likely due to postoperative change. Stable asymmetric low-attenuation of the right frontal subdural space may relate to chronic hematoma/hygroma. Stable large left frontal subcutaneous hematoma. No new skull fracture. Surgical changes from right frontal craniotomy. Chronic dense complete opacification of the right maxillary sinus is similar. Polypoidal mucosal thickening of the left maxillary sinus is unchanged. Near-complete opacification of the right frontal sinus and anterior ethmoid air cells. Mastoid air cells are clear. IMPRESSION: 1. Small volume of multifocal subarachnoid hemorrhage, intraventricular hemorrhage and scattered intraparenchymal hemorrhage are all not significantly changed since CT head of 03/07/2017. No new intracranial hemorrhage or obstructive hydrocephalus. 2. Stable right frontal encephalomalacia with overlying craniotomy. 03/07/2017 CT head without contrast. TECHNIQUE: Multiple contiguous axial images were obtained through the brain without the use of intravenous contrast. INDICATION: Intracranial hemorrhage. COMPARISON: 03/06/2017. FINDINGS: Again identified is small amount of subarachnoid hemorrhage along the superior margins of the sylvian fissures, bilaterally. Focus of hemorrhage is also seen adjacent to the posterior medial right temporal lobe, possibly within the right lateral ventricle. Small focus of hemorrhage is also seen within the posterior fossa posteriorly, midline. These areas of hemorrhage are essentially stable. Trace amount of intraventricular hemorrhage is also seen within the posterior horn of the left lateral ventricle. This may be new compared to prior exam, although again is minimal. There is no new mass effect or midline shift. Also again identified is moderate to large area of decreased attenuation involving the anterior margins of the right frontal lobe. Overlying craniotomy defect is also noted. Bone flap appears to be in satisfactory position. No new areas of loss of escalante-white matter junction differentiation are seen to suggest acute infarct. There is scattered and confluent areas of decreased attenuation within the periventricular and subcortical deep white matter consistent with chronic small vessel ischemic changes. Paranasal sinuses show complete opacification of the right maxillary sinus and at anterior ethmoid air cells. There is also mucosal retention cyst versus polyp in the left maxillary sinus. This is stable compared to prior exam. IMPRESSION: 1. Trace acute hemorrhage within the left lateral ventricle, which appears to be new compared to prior exam. Otherwise, scattered areas of intracranial hemorrhage are overall stable. 2. Stable moderate to large area of decreased attenuation involving the right frontal lobe. 3. No evidence of new acute infarct. 03/06/17 PROCEDURE: US LE venous duplex, bilateral. TECHNIQUE: Multiple real- time grayscale images were obtained over the lower extremities in various projections, bilaterally. Additional duplex Doppler and color Doppler images were also obtained. INDICATION: Previous deep venous thrombosis. FINDINGS: There is wall thickening involving the superficial femoral veins bilaterally, however, there is normal venous flow throughout the deep venous systems of both lower extremities without evidence of thrombosis. There is normal compressibility and response to augmentation. IMPRESSION: Probable scarring related to previous deep venous thrombosis of the superficial femoral veins of both legs. There is no ultrasound evidence of acute deep venous thrombosis. 03/06/17 XRAY SHOULDER COMPLETE LEFT: Indication: Left shoulder injury with pain. Fall. Discussion: Two views of the left shoulder were obtained, no comparison. Exam is somewhat limited due to positioning and patient body habitus. Abnormal appearance of the humeral neck region could be developmental though an underlying nondisplaced fracture cannot be excluded. There is no definite cortical defect identified within either of these two views. If there is clinical concern, noncontrast CT of the left shoulder could be obtained for further evaluation. No dislocation. Mild degenerative changes are noted within the acromioclavicular and glenohumeral joints. Soft tissues are unremarkable. Impression: 1. Abnormal angulation between the humeral head and shaft could potentially be developmental though a nondisplaced fracture should be excluded. Noncontrast CT of the left shoulder could be performed as clinically indicated. 03/06/17 CT HEAD WO PROCEDURE: CT head without contrast. TECHNIQUE: Multiple contiguous axial images were obtained through the brain without the use of intravenous contrast. INDICATION: History of brain tumor. Post fall one night earlier with a large hematoma. CORRELATION STUDY: 07/31/2016. FINDINGS: There is the presence of a large left frontal scalp hematoma. The bony calvarium below this area appears to be intact. There are scattered areas of acute intracranial hemorrhage which includes predominantly scattered areas of subarachnoid blood along the bilateral frontoparietal regions as well as a small amount of intraventricular blood of the right lateral ventricle as well as blood at the level of the cisterna magna. There are post surgical changes of right frontal craniotomy. The distorted appearance with low-attenuation and loss of the normal contour of the right frontal lobe is generally stable. Areas of high density in this area appear unchanged. Prominent intracranial vascular calcifications are again demonstrated. There is complete opacification of the right maxillary sinus appearing to be unchanged. There may be direct extension into the right nasal cavity and partial opacification of multiple right-sided ethmoid air cells. The frontal sinus is also largely opacified with soft tissue density. These findings were present on a prior study but overall have progressed. IMPRESSION: 1. There is a rather sizable left frontal scalp hematoma. There are scattered areas of acute subarachnoid and intraventricular hemorrhage. There is right frontal craniotomy with likely encephalomalacia and edema about the right frontal lobe generally stable. 3. There is chronic opacification of the right maxillary sinus but progressive increased opacification of the right- sided ethmoid air cells, nasal cavity, and frontal sinus. ASSESSMENT Dejah Joseph is a 86 year old female admitted from ED 03/09 where she presented with status epilepticus. She has complicated neurological history including glioblastoma multiforme s/p craniotomy, chemotherapy. She had a fall at home 03/06 sustaining a left frontal contusion, scalp hematoma, and subdural hematomas. She had been transferred to [facility], was observed there, but was discharged 03/08 without further intervention. But she started seizing at home in early AM 03/09 and was thus brought to this facility by EMS. She developed respiratory failure because of sedation from anti-epileptic drugs and was intubated in ED but was never connected to the ventilator. Family request that she be admitted here for comfort care with the expectation that she will pass away soon. She was extubated and comfort care was initiated. PLAN * Acute Respiratory Failure: Attributed to sedative effects of anti-epileptic drugs. On arrival to ICU, paralytic had worn off and she was breathing on her own through the ET tube. She was thus extubated. Oxygen per NRP was applied for comfort. Suction PRN. Morphine for air hunger. * Status Epilepticus: Got diazepam x 2 in the field, lorazepam in the ED. Levetiracetam 1000 mg IV was also given in ED. Plan lorazepam IV if she has recurrent seizure. Will be getting lorazepam PO per comfort care protocol. * Glioblastoma multiforme: Comfort care. Notify oncology and neurosurgery of decline in status. * Subdural Hematoma: Present prior to admit, from fall at home 03/06. Comfort care. * Pain: MOONEY and left shoulder pain prior to admit from recent fall at home. Left shoulder fracture and left frontal contusion/hematoma noted. Morphine per comfort care protocol. * Left frontal hematoma, head contusion, concussion: Observe. Comfort care. * Left shoulder fracture: Observe. Comfort care. * Nausea: Ondansetron/promethazine per comfort care protocol. * F/E/N: NPO, SL IV. * Prophylaxis: Deferred * Code Status: DNR * Dispo: Inpatient. Comfort care. If she endures > 48 hours, consider hospice consult. CHRONIC ISSUES Home medications stopped on admit: * Hypothyroidism * HLD * HTN * Seasonal allergies HAFSA BHATTI DO March 11, 2017 10:15
--- NOTE | 2017-03-11 10:46 | Progress Note (E) ---
Progress Note Spoke with Family and DPOA- they would like [facility] to eval for home vs inpatient Hospice. Alison KIM notified. HAFSA BHATTI DO March 11, 2017 10:46
--- NOTE | 2017-03-11 12:00 | NUR ---
Patient has been unresponsive all morning. Family has been at bedside. Family denies needs or questions and patient appears to be comfortable.
--- NOTE | 2017-03-11 13:00 | NUR ---
[facility] Home health and hospice here to visit with family.
[2017-03-11] MEDS ORDERED: MORP20SO SL (13:52)
--- NOTE | 2017-03-11 14:00 | NUR ---
DC to [facility] home health and hospice. Continues as a patient here in room 307 Under the care of Hospice.
[2017-03-12] MEDS ORDERED: PATCH REMOVAL TOP SCH (09:59)
--- NOTE | 2017-03-12 10:25 | Discharge Summary (E FT) ---
Discharge Summary (E FT) Admit Date March 09, 2017 at 08:18 Discharge Date March 11, 2017 at 13:54 Admitting Provider Ashwin Pandey MD Primary Care Provider Felice Francis MD Attending Provider Ashwin Pandey MD Consulting Provider Hospital Course Summary PCP: Felice Francis MD CC: Seizure, history of glioblastoma HPI Dejah Joseph is a 86 year old female admitted from ED 03/09 where she presented because of seizure. She has history of glioblastoma and was just in ED 03/06 after a fall from bar stool the day prior which led to hematoma over the left eye which prompted CT showing subdural hematoma. She was sent to [facility] and was just discharged from their 03/07 (yesterday.) She had seizure this AM at 0430. EMS gave her diazepam x 2 because of recurrent seizure. On arrival to ED she additional seizure so got lorazepam. Because of sedation, her respiratory rate slowed and she was intubated in ED. Transfer back to [facility] (where she was just discharged yesterday) was recommended since her neurological situation is complex and this would better meet the standard of care, but family asked that instead be she be allowed to stay close to home while arrangements can be made for transition to hospice. Because she was still intubated, she was admitted to ICU for further management. On arrival to unit, RT was still bagging through the ET tube but she was no longer paralyzed and she was actually breathing on her own so the ET tube was pulled. She was placed on NRB mask. Gurgling was noted. She did not gag much to [place]auer suction. BP was 135/66, HR 79 with SR and PVCs on tele. She was not responsive. Exam as noted below. GCS 6 (). Family is present. Two daughters provide history. Patient went home from [facility] 03/08 with her daughter Corry. Patient had been living with her. Corry says her first indication of a problem when she was awake this early AM because of tending to her dog. She heard her mother in another room making unusual noises and when she checked on her, she was concerned and thus called EMS. This was a change from the time she had been discharged from [facility] when she had been talking but was admittedly more tired. But from that discharge she went home by private car. Daughter Corry says the plan at [facility] was just to observe the hematoma. No surgery had been planned. Because the CT scan was stable, they were told they could take her home. Corry says they would have gone home from [facility] sooner but she had gotten IV pain medication that had sedated her. Vital Signs Date Time Temp Pulse Resp B/P Pulse Ox O2 Delivery O2 Flow Rate FiO2 03/11/17 08:24 98.9 103 23 111/72 93 Nasal cannula 03/09/17 11:33 15 GEN: Not responsive. GCS 4 () Family at bedside HEENT: Eyes closed, swollen bilaterally. Ecchymotic, Large frontal left hematoma. Craniotomy scar. CV: RRR. LUNGS: Coarse rhonchi in upper airway. shallow respirations ABD: Soft, sunken, hypoactive bowel sounds. EXTR: No edema. Normal peripheral pulses. INTEG: Ecchymoses, hematoma as described. Age related changes. NEURO: GCS 4 (). . Not responsive. Weight: 58.6 kg Laboratory Results-14 Days 03/09/17 05:20: Alanine Aminotransferase (ALT/SGPT) 11L, Albumin 3.7, Albumin/Globulin Ratio 1.121, Alkaline Phosphatase 87, Anion Gap 13.6, Aspartate Amino Transf (AST/SGOT ) 33, BUN/Creatinine Ratio 23H, Basophils # (Auto) 0.0, Basophils (%) (Auto) 0, Blood Urea Nitrogen 15, Calcium Level 9.3, Calcium/Ionized Calcium Ratio 4.1, Calculated Osmolality 280, Carbon Dioxide Level 28, Chloride Level 107, Creatinine 0.66, Eosinophils # (Auto) 0.3, Eosinophils (%) (Auto) 2, Estimat Glomerular Filtration Rate 102.3, Estimated GFR (Non- 84.5, Glucose Level 123H, Hematocrit 37.50, Hemoglobin 12.6, Lymphocytes # (Auto) 5.0 , Lymphocytes (%) (Auto) 40, Mean Corpuscular Hemoglobin 29.2, Mean Corpuscular Hemoglobin Concent 33.6, Mean Corpuscular Volume 87, Mean Platelet Volume 10.1H , Monocytes # (Auto) 0.8, Monocytes (%) (Auto) 7, Neutrophils # (Auto) 6.1, Neutrophils (%) (Auto) 50L, Platelet Count 190, Potassium Level 4.1, Red Blood Count 4.32, Red Cell Distribution Width 13.0, Sodium Level 144, Total Bilirubin 1.3H, Total Protein 7.0, White Blood Count 12.28H 03/09/17 06:20: Tobin Test pos, Arterial Blood Base Excess 2.0, Arterial Blood HCO3 23.0, Arterial Blood Oxygen Saturation 100H, Arterial Blood Partial Pressure CO2 22L, Arterial Blood Partial Pressure O2 228H, Arterial Blood Total CO2 24.0, Arterial Blood pH 7.63*H, Blood Gas Puncture Site rra, FiO2 % 100.0 IMAGING 03/09/17 CT HEAD WO PROCEDURE: CT head without contrast. TECHNIQUE: Multiple contiguous axial images were obtained through the brain without the use of intravenous contrast. INDICATION: Seizure. COMPARISON: 03/07/2017. FINDINGS: Multiple scattered foci of acute subarachnoid hemorrhage are not significantly changed. More rounded hyperdense focus in the mesial right temporal lobe likely is an intraparenchymal focus of hemorrhage which is also unchanged. There is also probable intraparenchymal focus of hemorrhage in the posterior and medial aspect of the left cerebellar hemisphere, also unchanged. Trace intraventricular hemorrhage within the dependent aspect of the left lateral ventricle. No new foci of intracranial hemorrhage. Basilar cisterns remain patent. No obstructive hydrocephalus. Large area of decreased attenuation in the right frontal lobe is similar and likely due to postoperative change. Stable asymmetric low-attenuation of the right frontal subdural space may relate to chronic hematoma/hygroma. Stable large left frontal subcutaneous hematoma. No new skull fracture. Surgical changes from right frontal craniotomy. Chronic dense complete opacification of the right maxillary sinus is similar. Polypoidal mucosal thickening of the left maxillary sinus is unchanged. Near-complete opacification of the right frontal sinus and anterior ethmoid air cells. Mastoid air cells are clear. IMPRESSION: 1. Small volume of multifocal subarachnoid hemorrhage, intraventricular hemorrhage and scattered intraparenchymal hemorrhage are all not significantly changed since CT head of 03/07/2017. No new intracranial hemorrhage or obstructive hydrocephalus. 2. Stable right frontal encephalomalacia with overlying craniotomy. 03/09/17 CXR: PENDING 03/07/2017 CT head without contrast. TECHNIQUE: Multiple contiguous axial images were obtained through the brain without the use of intravenous contrast. INDICATION: Intracranial hemorrhage. COMPARISON: 03/06/2017. FINDINGS: Again identified is small amount of subarachnoid hemorrhage along the superior margins of the sylvian fissures, bilaterally. Focus of hemorrhage is also seen adjacent to the posterior medial right temporal lobe, possibly within the right lateral ventricle. Small focus of hemorrhage is also seen within the posterior fossa posteriorly, midline. These areas of hemorrhage are essentially stable. Trace amount of intraventricular hemorrhage is also seen within the posterior horn of the left lateral ventricle. This may be new compared to prior exam, although again is minimal. There is no new mass effect or midline shift. Also again identified is moderate to large area of decreased attenuation involving the anterior margins of the right frontal lobe. Overlying craniotomy defect is also noted. Bone flap appears to be in satisfactory position. No new areas of loss of esclaante-white matter junction differentiation are seen to suggest acute infarct. There is scattered and confluent areas of decreased attenuation within the periventricular and subcortical deep white matter consistent with chronic small vessel ischemic changes. Paranasal sinuses show complete opacification of the right maxillary sinus and at anterior ethmoid air cells. There is also mucosal retention cyst versus polyp in the left maxillary sinus. This is stable compared to prior exam. IMPRESSION: 1. Trace acute hemorrhage within the left lateral ventricle, which appears to be new compared to prior exam. Otherwise, scattered areas of intracranial hemorrhage are overall stable. 2. Stable moderate to large area of decreased attenuation involving the right frontal lobe. 3. No evidence of new acute infarct. 03/06/17 PROCEDURE: US LE venous duplex, bilateral. TECHNIQUE: Multiple real- time grayscale images were obtained over the lower extremities in various projections, bilaterally. Additional duplex Doppler and color Doppler images were also obtained. INDICATION: Previous deep venous thrombosis. FINDINGS: There is wall thickening involving the superficial femoral veins bilaterally, however, there is normal venous flow throughout the deep venous systems of both lower extremities without evidence of thrombosis. There is normal compressibility and response to augmentation. IMPRESSION: Probable scarring related to previous deep venous thrombosis of the superficial femoral veins of both legs. There is no ultrasound evidence of acute deep venous thrombosis. 03/06/17 XRAY SHOULDER COMPLETE LEFT: Indication: Left shoulder injury with pain. Fall. Discussion: Two views of the left shoulder were obtained, no comparison. Exam is somewhat limited due to positioning and patient body habitus. Abnormal appearance of the humeral neck region could be developmental though an underlying nondisplaced fracture cannot be excluded. There is no definite cortical defect identified within either of these two views. If there is clinical concern, noncontrast CT of the left shoulder could be obtained for further evaluation. No dislocation. Mild degenerative changes are noted within the acromioclavicular and glenohumeral joints. Soft tissues are unremarkable. Impression: 1. Abnormal angulation between the humeral head and shaft could potentially be developmental though a nondisplaced fracture should be excluded. Noncontrast CT of the left shoulder could be performed as clinically indicated. 03/06/17 CT HEAD WO PROCEDURE: CT head without contrast. TECHNIQUE: Multiple contiguous axial images were obtained through the brain without the use of intravenous contrast. INDICATION: History of brain tumor. Post fall one night earlier with a large hematoma. CORRELATION STUDY: 07/31/2016. FINDINGS: There is the presence of a large left frontal scalp hematoma. The bony calvarium below this area appears to be intact. There are scattered areas of acute intracranial hemorrhage which includes predominantly scattered areas of subarachnoid blood along the bilateral frontoparietal regions as well as a small amount of intraventricular blood of the right lateral ventricle as well as blood at the level of the cisterna magna. There are post surgical changes of right frontal craniotomy. The distorted appearance with low-attenuation and loss of the normal contour of the right frontal lobe is generally stable. Areas of high density in this area appear unchanged. Prominent intracranial vascular calcifications are again demonstrated. There is complete opacification of the right maxillary sinus appearing to be unchanged. There may be direct extension into the right nasal cavity and partial opacification of multiple right-sided ethmoid air cells. The frontal sinus is also largely opacified with soft tissue density. These findings were present on a prior study but overall have progressed. IMPRESSION: 1. There is a rather sizable left frontal scalp hematoma. There are scattered areas of acute subarachnoid and intraventricular hemorrhage. There is right frontal craniotomy with likely encephalomalacia and edema about the right frontal lobe generally stable. 3. There is chronic opacification of the right maxillary sinus but progressive increased opacification of the right- sided ethmoid air cells, nasal cavity, and frontal sinus. ASSESSMENT Dejah Joseph is a 86 year old female admitted from ED 03/09 where she presented with status epilepticus. She has complicated neurological history including glioblastoma multiforme s/p craniotomy, chemotherapy. She had a fall at home 03/06 sustaining a left frontal contusion, scalp hematoma, and subdural hematomas. She had been transferred to [facility], was observed there, but was discharged 03/08 without further intervention. But she started seizing at home in early AM 03/09 and was thus brought to this facility by EMS. She developed respiratory failure because of sedation from anti-epileptic drugs and was intubated in ED but was never connected to the ventilator. Family request that she be admitted here for comfort care with the expectation that she will pass away soon. She was extubated and comfort care was initiated. Family has now decided for Hospice and [facility] has been consulted and pt accepted to in Hospice here. PLAN * Acute Respiratory Failure: Attributed to sedative effects of anti-epileptic drugs. On arrival to ICU, paralytic had worn off and she was breathing on her own through the ET tube. She was thus extubated. Oxygen per NRP was applied for comfort. Suction PRN. Morphine for air hunger. * Status Epilepticus: Got diazepam x 2 in the field, lorazepam in the ED. Levetiracetam 1000 mg IV was also given in ED. Plan lorazepam IV if she has recurrent seizure. Will be getting lorazepam PO per comfort care protocol. * Glioblastoma multiforme: Comfort care. * Subdural Hematoma: Present prior to admit, from fall at home 03/06. Comfort care. * Pain: MOONEY and left shoulder pain prior to admit from recent fall at home. Left shoulder fracture and left frontal contusion/hematoma noted. Morphine per comfort care protocol. * Left frontal hematoma, head contusion, concussion: Observe. Comfort care. * Left shoulder fracture: Observe. Comfort care. * Nausea: Ondansetron/promethazine per comfort care protocol. * F/E/N: NPO, SL IV. * Prophylaxis: Deferred * Code Status: DNR * Dispo: Pt to be admiited to in hospice per [facility] 03-11-17 CHRONIC ISSUES Home medications stopped on admit: * Hypothyroidism * HLD * HTN * Seasonal allergies Discharge Disposition To inpatient hospice per [facility] New Medications: Morphine Sulfate (Morphine Oral Concentrate 20mg/ml) 20 Mg/1 Ml Oral.conc 0 MG SL Q1H PRN PAIN #30 SYR Discontinued Medications: Aspirin (Baby Aspirin) 81 Mg Tab.chew 81 MG PO DAILY Atorvastatin Calcium (Atorvastatin Calcium) 20 Mg Tablet 20 MG PO DAILY TAB Furosemide (Furosemide) 40 Mg Tablet 40 MG PO DAILY #30 Levetiracetam (Keppra) 500 Mg Tab 500 MG PO BID #60 Ref 0 TAB Levothyroxine Sodium (Levothyroxine Sodium) 25 Mcg Tablet 25 MCG PO DAILY@0700 #30 Ref 0 TAB Loratadine (Claritin) 10 Mg Capsule 10 MG PO DAILY CAP Potassium Chloride (Potassium Chloride) 10 Meq Tablet.er 10 MEQ PO BID TAB Propranolol HCl (Propranolol HCl) 80 Mg Cap.sa.24h 80 MG PO DAILY CAP Rivaroxaban (Xarelto) 20 Mg Tablet 20 MG PO DAILY TAB Follow up Instructions Pt transitioning to in hospice 03-11-17[facility] Copies to: End of Report . Nazanin Jasso APRN March 12, 2017 10:25
== END 2017-03-11 13:54 | disposition hospice, inpatient (51) | DRG 100 ==
LOC: ED 04:36 → ICU 08:18 → MED/SURG 14:26
PROVIDERS: ADMIT Internal Medicine; ATTEND Internal Medicine
PROC: 0BP1XDZ Removal of Intraluminal Device from Trachea, External Approach (ICD-10-PCS; principal; 2017-03-09)
DX: G40.901 Epilepsy, unspecified, not intractable, with status epilepticus (principal); J96.00 Acute respiratory failure, unspecified whether with hypoxia or hypercapnia; C71.9 Malignant neoplasm of brain, unspecified; Z66 Do not resuscitate; Z51.5 Encounter for palliative care; S06.5X0D Traumatic subdural hemorrhage without loss of consciousness, subsequent encounter; S42.92XD Fracture of left shoulder girdle, part unspecified, subsequent encounter for fracture with routine healing; E03.9 Hypothyroidism, unspecified; I10 Essential (primary) hypertension; T42.4X5A Adverse effect of benzodiazepines, initial encounter; W08.XXXD Fall from other furniture, subsequent encounter; R40.2433 Glasgow coma scale score 3-8, at hospital admission; Z79.82 Long term (current) use of aspirin
CPT/HCPCS: 36415; 51702; 70450; 71010; 80053; 82803; 85025; 96361; 96374; 96375; 96376; 99285; 99291

== ENCOUNTER → 2017-03-09 | Outpatient (CLI) | payer MEDICARE ==
[~2017-03-09] MED LIST changes: +FURO40TA4 PO; +LORA10CA PO; +MORP20SO SL; +POTA10TA10 PO; +RIVA20TA PO
== END ==
LOC: EMS 04:30
PROVIDERS: ATTEND Emergency Medicine
DX: R56.9 Unspecified convulsions (principal); R41.82 Altered mental status, unspecified